=== PATIENT | male | born 1985 | race Caucasian/White ===

== ENCOUNTER 2017-06-14 16:14 | Emergency (ER) | payer OTHER ==
[~2017-06-14] VITALS: Ht 172.7 cm; Wt 83.2 kg
[~2017-06-14 16:14] MED LIST: AMOXICILLIN875 MG PO; FLEXERIL10 MG PO; KEPPRA500 MG PO; NAPROSYN500 MG PO; NOHOMEMEDS; NORCO 5/3251 TABLET PO; PERCOCET 5/31 TABLET PO; TEGRETOL200 MG PO
[2017-06-14 19:29] VITALS: BP 113/61
== END 2017-06-14 19:30 | disposition home or self-care (01) ==
LOC: EME 16:14
DX: G40.909 Epilepsy, unspecified, not intractable, without status epilepticus (principal); F17.200 Nicotine dependence, unspecified, uncomplicated
CPT/HCPCS: 80156; 93005; 99281; 99284; J2060

== ENCOUNTER 2017-06-29 21:00 | Emergency (ER) | payer OTHER ==
[~2017-06-29] VITALS: Ht 177.8 cm; Wt 82.6 kg
[2017-06-29] MEDS ORDERED: CLINDAMYCIN HC300 MG PO (22:31)
[2017-06-29] MEDS ORDERED: PERCOCET 5/31 TABLET PO (22:40)
[2017-06-29 22:53] VITALS: BP 131/82
== END 2017-06-29 22:53 | disposition home or self-care (01) ==
LOC: EME 21:00
PROC: 0C96XZZ Drainage of Lower Gingiva, External Approach (ICD-10-PCS; principal; 2017-06-29)
DX: K04.7 Periapical abscess without sinus (principal); Z88.5 Allergy status to narcotic agent
CPT/HCPCS: 99281; 99283

== ENCOUNTER 2017-09-11 17:13 | Emergency (ER) | payer OTHER ==
[~2017-09-11] VITALS: Ht 170.2 cm; Wt 78.5 kg
[~2017-09-11 17:13] MED LIST changes: +CLINDAMYCIN HC300 MG PO
[2017-09-11] MEDS ORDERED: TEGRETOL200 MG PO (20:05)
[2017-09-11 20:12] VITALS: BP 107/63
== END 2017-09-11 20:13 | disposition home or self-care (01) ==
LOC: EME 17:13
DX: G40.909 Epilepsy, unspecified, not intractable, without status epilepticus (principal); S90.01XA Contusion of right ankle, initial encounter; X58.XXXA Exposure to other specified factors, initial encounter; R51 Headache; F17.200 Nicotine dependence, unspecified, uncomplicated
CPT/HCPCS: 99281; 99283